=== PATIENT | male | born 2000 | race African-American/Black ===

== ENCOUNTER 2021-04-20 09:53 | Emergency (ER) | payer OTHER ==
[~2021-04-20] VITALS: Ht 182.9 cm; Wt 71.7 kg
[2021-04-20 10:00] VITALS: BP_SYST 136
--- NOTE | 2021-04-20 10:00 | NUR ---
Patient to ER bed 3 to gown for evaluation. Side rails up. Report given to DANIEL PHILLIPS.
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
--- NOTE | 2021-04-20 10:17 | NUR ---
ER at bedside examining patient.
[2021-04-20 11:36] VITALS: BP_SYST 136
--- NOTE | 2021-04-20 11:38 | NUR ---
Patient given written and verbal discharge instructions and verbalizes understanding. ER MD discussed with patient the results and treatment provided. Patient in stable condition. ID arm band removed. No Rx given. Patient educated on pain management and to follow up with PMD. Pain Scale 2/10. Opportunity for questions provided and answered. Medication side effect fact sheet provided.
== END 2021-04-20 11:36 | disposition home or self-care (01) ==
LOC: EDBD 09:53 → SED 09:53
DX: R07.89 Other chest pain (principal); V49.59XA Passenger injured in collision with other motor vehicles in traffic accident, initial encounter; Y93.89 Activity, other specified; Y92.89 Other specified places as the place of occurrence of the external cause; Y99.8 Other external cause status
CPT/HCPCS: 71046-TC; 93005; 99283